=== PATIENT | female | born 1990 | race Caucasian/White ===

== ENCOUNTER 2017-07-12 21:02 | Emergency (ER) | payer MEDICAID, OTHER, SELFPAY ==
[2017-07-12 21:21] LABS: Pregnancy Test - Urine (BHCG) Negative (Negative); Pregu Control Background? CLEAR/WHITE (CLR/WHITE); Pregu Control Bar Appear? YES (CONTROL BAR); Specific Gravity 1.004 (1.002-1.036)
--- NOTE | 2017-07-12 22:06 | RAD ---
TWO VIEWS LEFT CLAVICLE: Comparison: None. History: Left shoulder pain for three days. FINDINGS: Two views left clavicle shows no evidence of acute fracture or dislocation. No degenerative changes a re seen. No soft tissue swelling is seen. The visualized left thorax is unremarkable. IMPRESSION: Unremarkable exam. POS: [facility]
[2017-07-12] MEDS ORDERED: Cyclobenzaprine 10 MG TAB ONE (22:44)
== END 2017-07-12 22:58 | disposition home or self-care (01) ==
LOC: ERS 21:02
DX: S46.912A Strain of unspecified muscle, fascia and tendon at shoulder and upper arm level, left arm, initial encounter (principal); X58.XXXA Exposure to other specified factors, initial encounter
CPT/HCPCS: 81025

== ENCOUNTER 2017-07-18 19:16 | Emergency (ER) | payer MEDICAID, OTHER, SELFPAY ==
[2017-07-18] MEDS ORDERED: diphenhydrAMINE 50 MG/ML VIAL ONE (19:44)
[2017-07-18] MEDS ORDERED: Metoclopramide HCl 10 MG/2 ML VIAL ONE (19:44)
[2017-07-18 20:52] LABS: #Eosinphils 0.1 thou/uL (0.0-0.7); #Lymphocytes 1.5 thou/uL (1.20-3.40); #Monocytes 0.5 thou/uL (0.11-0.59); #Neutrophils 4.2 thou/uL (1.40-6.50); %Basophils 0.6 % (0.0-1.0); %Eosinophils 1.3 % (0.0-10.0); %Lymphocytes 24.5 % (21.0-51.0); %Monocytes 7.5 % (0.0-10.0); %Neutrophils 66.2 % (42.0-75.0); Hemoglobin 10.3 g/dL (12.0-16.0); Mean Corpuscular HGB CONC 32.5 g/dL (32.0-36.0); Mean Corpuscular Hemoglobin 24.7 pg (27.0-31.0); Mean Corpuscular Volume 75.8 fl (81.0-99.0); Platelet Count 422 thou/uL (130-400); RBC Distribution Width 14.8 % (11.5-14.5); Red Blood Cell (RBC) Count 4.16 mill/uL (4.20-5.40); White Blood Cell (WBC) Count 6.3 thou/uL (4.8-10.8)
[2017-07-18 21:00] LABS: BHCG - Serum Negative (NEGATIVE); Pregs Control Background? CLEAR/WHITE (CLR/WHITE); Pregs Control Bar Appear? YES (CONTROL BAR)
[2017-07-18 21:09] LABS: Anion Gap 11 mmol/L (10-20); BUN (Urea Nitrogen) 14 mg/dL (7.0-18.7); Calc. Creatinine Clearance 0 mL/min (70-130); Calcium 9.4 mg/dL (7.8-10.44); Carbon Dioxide 25 mmol/L (22-29); Chloride 105 mmol/L (98-107); Estimated GFR-MDRD Greater than 90; Glucose 88 mg/dL (70-105); Potassium 3.4 mmol/L (3.5-5.1); Sodium 138 mmol/L (136-145)
--- NOTE | 2017-08-20 14:58 | EKG ---
Test Reason : Blood Pressure : / mmHG Vent. Rate : 076 BPM Atrial Rate : 076 BPM P-R Int : 142 ms QRS Dur : 086 ms QT Int : 398 ms P-R-T Axes : 075 050 041 degrees QTc Int : 447 ms Normal sinus rhythm Possible Left atrial enlargement Borderline ECG Confirmed by SUKHJINDER BALDWIN, SAIDA ([id number]), editor greeting card NICOLE RIVERA ([id number]) on 08/20/2017 2:57:22 PM Referred By: Confirmed By:SAIDA SLAUGHTER MD
== END 2017-07-18 22:15 | disposition home or self-care (01) ==
LOC: ERS 19:16
DX: D64.9 Anemia, unspecified (principal); R51 Headache; R53.1 Weakness; F41.9 Anxiety disorder, unspecified; F17.210 Nicotine dependence, cigarettes, uncomplicated; Z71.6 Tobacco abuse counseling
CPT/HCPCS: 80048; 84703; 85025; 93005; 96365; 96366; 96375; 99406; J1200; J2765

== ENCOUNTER 2017-08-20 20:33 | Emergency (ER) | payer MEDICAID, SELFPAY ==
[~2017-08-20 20:33] MED LIST: ISOVUE-370 76%-LOCM 1 ML ONE
[2017-08-20 20:54] LABS: #Eosinphils 0.1 thou/uL (0.0-0.7); #Lymphocytes 1.2 thou/uL (1.20-3.40); #Monocytes 0.6 thou/uL (0.11-0.59); #Neutrophils 6.7 thou/uL (1.40-6.50); %Basophils 0.4 % (0.0-1.0); %Eosinophils 0.6 % (0.0-10.0); %Lymphocytes 14.3 % (21.0-51.0); %Monocytes 7.1 % (0.0-10.0); %Neutrophils 77.6 % (42.0-75.0); Hemoglobin 9.7 g/dL (12.0-16.0); Mean Corpuscular HGB CONC 31.2 g/dL (32.0-36.0); Mean Corpuscular Hemoglobin 23.8 pg (27.0-31.0); Mean Corpuscular Volume 76.4 fl (81.0-99.0); Mean Platelet Volume 7.2 fL (7.4-10.4); Platelet Count 361 thou/uL (130-400); RBC Distribution Width 15.8 % (11.5-14.5); Red Blood Cell (RBC) Count 4.08 mill/uL (4.20-5.40); White Blood Cell (WBC) Count 8.6 thou/uL (4.8-10.8)
[2017-08-20 21:17] LABS: ALT (SGPT) 16 U/L (8-55); AST (SGOT) 19 U/L (5-34); Albumin 4.6 g/dL (3.5-5.0); Alkaline Phosphatase 98 U/L (40-150); Anion Gap 13 mmol/L (10-20); BUN (Urea Nitrogen) 14 mg/dL (7.0-18.7); Bilirubin, Total 1.3 mg/dL (0.2-1.2); Calc. Creatinine Clearance 0 mL/min (70-130); Calcium 9.6 mg/dL (7.8-10.44); Carbon Dioxide 23 mmol/L (22-29); Chloride 104 mmol/L (98-107); Estimated GFR-MDRD Greater than 90; Globulin 3.5 g/dL (2.4-3.5); Glucose 93 mg/dL (70-105); Potassium 3.6 mmol/L (3.5-5.1); Protein, Total 8.1 g/dL (6.0-8.3); Sodium 136 mmol/L (136-145)
[2017-08-20 21:54] LABS: Pregnancy Test - Urine (BHCG) Negative (Negative); Pregu Control Background? CLEAR/WHITE (CLR/WHITE); Pregu Control Bar Appear? YES (CONTROL BAR)
[2017-08-20 21:55] LABS: Bilirubin Negative (Negative); Blood, Urine Large (Negative); Clarity CLOUDY (Clear); Glucose, Urine (Dipstick) Negative (Negative); Leukocyte Large (Negative); Nitrite Negative (Negative); Protein, Urine (Dipstick) 30 mg/dL (Neg-Trace); Specific Gravity, Urine 1.016 (1.002-1.036); Urobilinogen 0.2 mg/dL (0.2-1.0)
[2017-08-20 21:56] LABS: Specific Gravity 1.016 (1.002-1.036)
[2017-08-20 21:57] LABS: Bacteria/HPF 2+ HPF (None Seen); Hyaline Casts/LPF 0-3 HYALINE CAST LPF (0-3 Hyaline); Pathc Cast-AUWi Flag 0.14 (0-2.49); RBC/HPF GREATER THAN 50-TNTC HPF (0-3); Squamous Epithelial 0-3 HPF (0-3)
[2017-08-20] MEDS ORDERED: Ketorolac Tromethamine 30 MG/ML VIAL ONE ×2 (22:46→22:47)
[2017-08-20] MEDS ORDERED: Morphine 4 MG/ML VIAL ONE (22:47)
--- NOTE | 2017-08-20 23:00 | CT ---
ABDOMEN AND PELVIC CT SCAN WITH IV CONTRAST: 08/20/17 HISTORY: 26-year-old female with abdominal pain, right sided abdomen and flank pain and lower back pain for se veral days. The lung bases showed no acute process. The liver, gallbladder, pancreas, spleen, adrenal glands, are unremarkable. No renal calculus or acute obstruction. Normal appearing appendix. There is some ab normal wall thickening involving the terminal ileum over the length of approximately 6 cm. This certa inly could represent some terminal ileitis or other focal process involving abnormal wall thickening of the terminal ileum. the uterus and adnexal regions are unremarkable. IMPRESSION: Prominent abnormal wall thickening of the terminal ileum raising concern for terminal ileitis or Croh n's disease. No renal calculus or obstruction. Normal appearing appendix. No evidence for other si gnificant acute process. POS: [facility]
== END 2017-08-21 00:42 | disposition home or self-care (01) ==
LOC: ERS 20:33
DX: N12 Tubulo-interstitial nephritis, not specified as acute or chronic (principal); K52.9 Noninfective gastroenteritis and colitis, unspecified; D50.9 Iron deficiency anemia, unspecified; F41.9 Anxiety disorder, unspecified; F17.210 Nicotine dependence, cigarettes, uncomplicated
CPT/HCPCS: 36415; 74177; 80053; 81003; 81015; 81025; 85025; 87077; 87086; 96361; 96374; 96375; J0696; J1885; J2270

== ENCOUNTER 2018-06-05 20:43 | Emergency (ER) | payer SELFPAY ==
[2018-06-05] MEDS ORDERED: diphenhydrAMINE 50 MG/ML VIAL ONE (21:46)
[2018-06-05] MEDS ORDERED: Metoclopramide HCl 10 MG/2 ML VIAL ONE (21:46)
--- NOTE | 2018-06-05 22:30 | RAD ---
PA AND LATERAL CHEST: HISTORY: Chest pain. FINDINGS: The cardiomediastinum is normal. The lungs are well expanded and clear. The bony thorax is normal. IMPRESSION: Normal examination. POS: [facility]
--- NOTE | 2018-06-05 22:33 | CT ---
CT BRAIN WITHOUT CONTRAST: HISTORY: Headache. COMPARISON: 08/27/2014 FINDINGS: No evidence of infarct, hemorrhage, midline shift, or abnormal extraaxial fluid collections is seen. The ventricular size is normal, and the basilar cisterns are patent. The bony calvarium is intact. The visualized paranasal sinuses and mastoid air cells are well aerated. IMPRESSION: No CT evidence of acute intracranial process. POS: [facility]
== END 2018-06-05 23:35 | disposition home or self-care (01) ==
LOC: ERS 20:43
DX: R07.89 Other chest pain (principal); R51 Headache; F17.210 Nicotine dependence, cigarettes, uncomplicated
CPT/HCPCS: 70450; 71046; 93005; 96365; 96375; J1200; J2765

== ENCOUNTER 2018-06-15 22:25 | Emergency (ER) | payer SELFPAY | END 2018-06-15 22:59 | disposition home or self-care (01) | LOC: ERS 22:25 | DX: J01.90 Acute sinusitis, unspecified (principal); H92.02 Otalgia, left ear; F17.210 Nicotine dependence, cigarettes, uncomplicated | CPT/HCPCS: 99282 ==

== ENCOUNTER 2018-07-12 22:12 | Emergency (ER) | payer SELFPAY ==
[2018-07-12] MEDS ORDERED: HYDROcodone/Acetaminophen 5/325 mg Tablet ONE (22:38)
== END 2018-07-12 23:03 | disposition home or self-care (01) ==
LOC: ERS 22:12
DX: K04.7 Periapical abscess without sinus (principal); K02.9 Dental caries, unspecified; F17.210 Nicotine dependence, cigarettes, uncomplicated
CPT/HCPCS: 99282

== ENCOUNTER 2019-10-05 15:12 | Emergency (ER) | payer OTHER, SELFPAY | END 2019-10-05 16:10 | disposition home or self-care (01) | LOC: ERS 15:12 | DX: M79.10 Myalgia, unspecified site (principal); F17.210 Nicotine dependence, cigarettes, uncomplicated; Z20.828 Contact with and (suspected) exposure to other viral communicable diseases | CPT/HCPCS: 87635; 99283; U0003 ==

== ENCOUNTER 2021-11-17 22:52 | Emergency (ER) | payer OTHER ==
[2021-11-17] MEDS ORDERED: Ondansetron ODT 8 MG TAB ONE (23:46)
== END 2021-11-17 23:47 | disposition home or self-care (01) ==
LOC: ERS 22:52
DX: S06.0X0A Concussion without loss of consciousness, initial encounter (principal); W20.8XXA Other cause of strike by thrown, projected or falling object, initial encounter; Y92.009 Unspecified place in unspecified non-institutional (private) residence as the place of occurrence of the external cause; Z87.891 Personal history of nicotine dependence
CPT/HCPCS: Q0162